=== PATIENT | female | born 1995 | race Caucasian/White ===

== ENCOUNTER 2020-08-13 14:40 | Inpatient (IN) | payer BC ==
[2020-08-13] MEDS ORDERED: Nalbuphine 10 MG/ML Syringe IVPUSH PRN (17:00)
[2020-08-13] MEDS ORDERED: Sodium Chloride 0.9% 10 ML Syringe FLUSH PRN (17:00)
[2020-08-13] MEDS ORDERED: Oxytocin/Lactated Ringers 10 UNIT/1,000 ML BAG IV SCH (17:00)
[2020-08-13] MEDS ORDERED: Ondansetron 4 MG/2 ML SDV IVPUSH PRN (17:00)
--- NOTE | 2020-08-13 17:24 | PCM.LDHP ---
L&D History of Present Illness - General Date of Service: 08/13/20 Admit Problem/Dx: Patient Status Order with Admit Dx/Problem 08/13/20 15:10 Patient Status [ADT] Routine 08/13/20 17:00 Patient Status [ADT] Routine Admission Diagnosis/Problem Admission Diagnosis/Problem Source of Information: Patient History Limitations: Reports: No Limitations - History of Present Illness Introduction:: Patient is a 25 y/o at 40 0/7 wks presents for PROM. Seen in clinic this AM around 100 where membrane sweeping done. Feels that shortly after this had gush of fluid. Has continued since, but been small in amount. No significant contractions. 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: 0 LMP (Approximate): Endocrine/Metabolic History: Reports: Obesity/BMI 30+ - Past Surgical History HEENT Surgical History: Reports: Oral Surgery, Tonsillectomy Female Surgical History: Reports: Breast Biopsy Social & Family History - Tobacco Use Smoking Status *Q: Never Smoker - Alcohol Use Alcohol Use History: No - Recreational Drug Use Recreational Drug Use: No H&P Review of Systems - Review of Systems: Review Of Systems: See Below General: Reports: No Symptoms Pulmonary: Reports: No Symptoms Cardiovascular: Reports: No Symptoms Gastrointestinal: Reports: No Symptoms Genitourinary: Reports: No Symptoms Musculoskeletal: Reports: No Symptoms Psychiatric: Reports: No Symptoms Neurological: Reports: No Symptoms L&D Exam - Exam Exam: See Below - Vital Signs Vital Signs: Last Vital Signs Temp 37.0 C 08/13/20 15:05 Pulse 73 08/13/20 15:05 Resp 16 08/13/20 15:05 BP 136/68 08/13/20 15:05 Pulse Ox 97 08/13/20 15:05 Weight: 129.183 kg - OB Specific Contraction Intensity: Irritability Movement: Active Heart Tones: Present Heart Tones per Min: 130 Heart Rate (FHR) Variability: Moderate (6-25 bmp) Presentation: Vertex - Whitney Score Whitney Score Cervix Position: Posterior Whitney Score Consistency: Soft Whitney Score Effacement: 31-50% Whitney Score Dilation: 1-2 cm Whitney Score Infant's Station: -3 Whitney Score Total: 4 - Exam General: Alert, Oriented, Cooperative Lungs: Clear to Auscultation, Normal Respiratory Effort Cardiovascular: Regular Rate, Regular Rhythm GI/Abdominal Exam: Soft, Non-Tender Genitourinary: Normal external exam Extremities: Normal Inspection Skin: Warm, Dry, Intact - Patient Data Lab Results Last 24 hrs: Laboratory Results - last 24 hr 08/13/20 08/13/20 Range/Units 15:00 16:22 Membrane Rupture Positive H SARS CoV-2 RNA Rapid CHAITANYA Negative (NEGATIVE) Result Diagrams: 08/13/20 17:20 - Problem List (1) 40 weeks gestation of SNOMED Code(s): 03696185 ICD Code: Z3A.40 - 40 WEEKS GESTATION OF Status: Acute Current Visit: Yes (2) PROM (premature rupture of membranes) SNOMED Code(s): 68232416 ICD Code: O42.90 - MEHUL ROM, 7TH0 BETW RUPT & ONST LABR, UNSP WEEKS OF GEST Status: Acute Current Visit: Yes Qualifiers: PROM onset of labor timing: unspecified duration between rupture of membranes and onset of labor PROM gestational age: full term Qualified Code(s): O42.92 - Full-term premature rupture of membranes, unspecified as to length of time between rupture and onset of labor Problem List Initiated/Reviewed/Updated: Yes Orders Last 24hrs: Active Orders 24 hr Category Date Time Status Patient Status [ADT] Routine ADT 08/13/20 17:00 Active Activity as Tolerated [RC] PFP Care 08/13/20 17:00 Active Communication Order [RC] ASDIRECTED Care 08/13/20 17:00 Active Heart Tones [RC] ASDIRECTED Care 08/13/20 17:00 Active Non Stress Test [RC] PER UNIT ROUTINE Care 08/13/20 15:10 Active Notify Provider [RC] PFP Care 08/13/20 17:00 Active Notify Provider [RC] PRN Care 08/13/20 17:00 Active Peripheral IV Care [RC] . DIRECTED Care 08/13/20 17:00 Active Pump Management, Intrathecal [RC] ASDIRECTED Care 08/13/20 17:01 Active Urinary Catheter Assessment [RC] ASDIRECTED Care 08/13/20 17:00 Active Vital Signs [RC] PER UNIT ROUTINE Care 08/13/20 15:10 Active Regular Diet [DIET] Diet 08/13/20 Dinner Active CBC WITH AUTO DIFF [HEME] Stat Lab 08/13/20 17:00 Ordered RAPID PLASMA REAGIN,RPR [CHEM] Routine Lab 08/13/20 17:00 Ordered TYPE AND SCREEN [BBK] Stat Lab 08/13/20 17:00 Ordered Lactated Ringers [Ringers, Lactated] 1,000 ml Med 08/13/20 17:00 Active IV ASDIRECTED Nalbuphine [Nubain] Med 08/13/20 17:00 Ordered 10 mg IVPUSH Q2H PRN Ondansetron [Zofran] Med 08/13/20 17:00 Ordered 4 mg IVPUSH Q4H PRN Oxytocin/Lactated Ringers [Pitocin in LR 10 Units/1,000 Med 08/13/20 17:00 Ordered ML] 10 unit in 1,000 ml IV .CONTINUOUS Oxytocin/Lactated Ringers [Pitocin in LR 10 Units/1,000 Med 08/13/20 17:00 Ordered ML] 10 unit in 1,000 ml IV TITRATE Sodium Chloride 0.9% [Saline Flush] Med 08/13/20 17:00 Ordered 10 ml FLUSH ASDIRECTED PRN Electronic Heart Tones Ext w TOCO [WOMSER] Oth 08/13/20 17:00 Ordered Routine Electronic Heart Tones Internal [WOMSER] Per Unit Oth 08/13/20 17:00 Ordered Routine Peripheral IV Insertion Adult [OM.PC] Routine Oth 08/13/20 17:00 Ordered Resuscitation Status Routine Resus Stat 08/13/20 15:10 Ordered Medication Orders Lactated Ringer's (Ringers, Lactated) 1,000 mls @ 100 mls/hr IV ASDIRECTED XOCHILT Oxytocin/Lactated Ringer's (Pitocin In Lr 10 Units/1,000 Ml) 10 unit in 1,000 mls @ 12 mls/hr IV TITRATE XOCHILT; Protocol Oxytocin/Lactated Ringer's (Pitocin In Lr 10 Units/1,000 Ml) 10 unit in 1,000 mls @ 500 mls/hr IV .CONTINUOUS XOCHILT Nalbuphine HCl (Nubain) 10 mg IVPUSH Q2H PRN PRN Reason: Pain Ondansetron HCl (Zofran) 4 mg IVPUSH Q4H PRN PRN Reason: Nausea/Vomiting Sodium Chloride (Saline Flush) 10 ml FLUSH ASDIRECTED PRN PRN Reason: Keep Vein Open Assessment/Plan Comment:: * Labs done and normal * GBS negative (done in triage 2 days ago) * Reviewed has already been ruptured greater than 6 hours. Would recommend pitocin for augmentation. She will consider * Pain management per patient preference * Anticipate
[2020-08-13] MEDS: Oxytocin/Lactated Ringers 10 UNIT/1,000 ML BAG IV SCH (18:19)
[2020-08-13] MEDS: Lactated Ringers 1,000 ML IV SCH (18:19)
[2020-08-14] MEDS ORDERED: diphenhydrAMINE 50 MG/ML SDV IVPUSH PRN ×2 (02:25→11:40)
[2020-08-14] MEDS ORDERED: fentaNYL 100 MCG/2 ML SDV EPIDUR PRN (02:25)
[2020-08-14] MEDS ORDERED: Bupivacaine/fentaNYL/NS 100 ML Bag EPIDUR PRN (02:25)
[2020-08-14] MEDS ORDERED: fentaNYL 100 MCG/2 ML SDV ONE ×2 (02:30→11:36)
[2020-08-14] MEDS: Lactated Ringers 1,000 ML IV SCH ×3 (02:50→08:37)
--- NOTE | 2020-08-14 02:57 | PCM.PREANE ---
Preanesthetic Assessment - Procedure Proposed Procedure: cedric - Anesthesia/Transfusion/Family Hx Anesthesia History: Prior Anesthesia Without Reaction Family History of Anesthesia Reaction: No Transfusion History: No Prior Transfusion(s) - Review of Systems General: No Symptoms Pulmonary: No Symptoms Cardiovascular: No Symptoms Gastrointestinal: No Symptoms Neurological: No Symptoms Other: Reports: None - Physical Assessment Vital Signs: Last Vital Signs Temp 98.6 F 08/13/20 15:05 Pulse 73 08/13/20 15:05 Resp 16 08/13/20 15:05 BP 136/68 08/13/20 15:05 Pulse Ox 97 08/13/20 15:05 Height: 5 ft 8 in Weight: 129.183 kg ASA Class: 3 Mental Status: Alert & Oriented x3 Airway Class: Mallampati = 1 Dentition: Reports: Normal Dentition Thyro-Mental Finger Breadths: 3 Mouth Opening Finger Breadths: 3 ROM/Head Extension: Full Lungs: Clear to Auscultation, Normal Respiratory Effort Cardiovascular: Regular Rate, Regular Rhythm - Lab Values: Laboratory Last Values WBC 10.90 K/mm3 (3.98-10.04) H 08/13/20 17:20 RBC 4.34 M/mm3 (3.98-5.22) 08/13/20 17:20 Hgb 12.8 gm/dl (11.2-15.7) 08/13/20 17:20 Hct 38.3 % (34.1-44.9) 08/13/20 17:20 MCV 88.2 fl (79.4-94.8) 08/13/20 17:20 MCH 29.5 pg (25.6-32.2) 08/13/20 17:20 MCHC 33.4 g/dl (32.2-35.5) 08/13/20 17:20 RDW Std Deviation 43.8 fL (36.4-46.3) 08/13/20 17:20 Plt Count 230 K/mm3 (182-369) 08/13/20 17:20 MPV 10.6 fl (9.4-12.3) 08/13/20 17:20 Neut % (Auto) 74.0 % (34.0-71.1) H 08/13/20 17:20 Lymph % (Auto) 17.9 % (19.3-51.7) L 08/13/20 17:20 [place] % (Auto) 7.1 % (4.7-12.5) 08/13/20 17:20 Eos % (Auto) 0.7 (0.7-5.8) 08/13/20 17:20 Baso % (Auto) 0.1 % (0.1-1.2) 08/13/20 17:20 Neut # (Auto) 8.07 K/mm3 (1.56-6.13) H 08/13/20 17:20 Lymph # (Auto) 1.95 K/mm3 (1.18-3.74) 08/13/20 17:20 [place] # (Auto) 0.77 K/mm3 (0.24-0.36) H 08/13/20 17:20 Eos # (Auto) 0.08 K/mm3 (0.04-0.36) 08/13/20 17:20 Baso # (Auto) 0.01 K/mm3 (0.01-0.08) 08/13/20 17:20 Manual Slide Review Not Reportable 08/13/20 17:20 Membrane Rupture Positive H 08/13/20 16:22 RPR Non-reactive (NONREACTIVE) 08/13/20 17:20 SARS CoV-2 RNA Rapid CHAITANYA Negative (NEGATIVE) 08/13/20 15:00 Blood Type O POSITIVE 08/13/20 17:20 Gel Antibody Screen Negative 08/13/20 17:20 - Allergies Allergies/Adverse Reactions: Allergies Allergy/AdvReac Type Severity Reaction Status Date / Time Cephalosporins Allergy Rash Verified 08/11/20 11:20 - Blood Blood Available: No - Acknowledgements Anesthesia Type Planned: Epidural Pt an Appropriate Candidate for the Planned Anesthesia: Yes Alternatives and Risks of Anesthesia Discussed w Pt/Guardian: Yes Pt/Guardian Understands and Agrees with Anesthesia Plan: Yes PreAnesthesia Questionnaire Cardiovascular History: Reports: None Respiratory History: Reports: None Gastrointestinal History: Reports: GERD 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) Para: 0 Other OB/BYN History: left breast cyst removal Endocrine/Metabolic History: Reports: Obesity/BMI 30+ - Past Surgical History HEENT Surgical History: Reports: Oral Surgery, Tonsillectomy Female Surgical History: Reports: Breast Biopsy - SUBSTANCE USE Smoking Status *Q: Former Smoker (quit 7 years ago) Tobacco Use Within Last Twelve Months: No Second Hand Smoke Exposure: No Days Per Week of Alcohol Use: 0 Recreational Drug Use History: No - HOME MEDS Home Medications: Home Meds Pnv No.95/Ferrous Fum/Folic AC [ Tablet] 1 each PO DAILY 08/11/20 [History] Calcium Carbonate [Tums] 500 mg PO DAILY PRN 08/13/20 [History] Ferrous Sulfate [Iron] 325 mg PO DAILY 08/13/20 [History] - CURRENT (IN HOUSE) MEDS Current Meds: Current Medications Diphenhydramine HCl (Benadryl) 25 mg IVPUSH Q6H PRN PRN Reason: pruritis Ephedrine Sulfate (Ephedrine Sulfate) 5 mg IVPUSH ASDIRECTED PRN PRN Reason: Hypotension Fentanyl (Sublimaze) 100 mcg EPIDUR Q3H PRN PRN Reason: Pain Last Admin: 08/14/20 02:35 Dose: 100 mcg Documented by: Fentanyl/Bupivacaine HCl (Fentanyl/Bupivacaine/Ns 2 Mcg-0.125% 100 Ml) 100 ml EPIDUR ASDIRECTED PRN PRN Reason: Pain Last Admin: 08/14/20 02:35 Dose: 100 ml Documented by: Lactated Ringer's (Ringers, Lactated) 1,000 mls @ 100 mls/hr IV ASDIRECTED XOCHILT Last Admin: 08/14/20 02:50 Dose: 100 mls/hr Documented by: Oxytocin/Lactated Ringer's (Pitocin In Lr 10 Units/1,000 Ml) 10 unit in 1,000 mls @ 12 mls/hr IV TITRATE XOCHILT; Protocol Last Titration: 08/13/20 21:45 Dose: 12 munits/min, 72 mls/hr Documented by: Oxytocin/Lactated Ringer's (Pitocin In Lr 10 Units/1,000 Ml) 10 unit in 1,000 mls @ 500 mls/hr IV .CONTINUOUS XOCHILT Nalbuphine HCl (Nubain) 10 mg IVPUSH Q2H PRN PRN Reason: Pain Ondansetron HCl (Zofran) 4 mg IVPUSH Q4H PRN PRN Reason: Nausea/Vomiting Sodium Chloride (Saline Flush) 10 ml FLUSH ASDIRECTED PRN PRN Reason: Keep Vein Open Discontinued Medications Fentanyl (Sublimaze) Confirm Administered Dose 100 mcg .ROUTE .[facility]-MED ONE Stop: 08/14/20 02:31
[2020-08-14] MEDS: ePHEDrine 50 MG/ML SDV IVPUSH PRN ×2 (03:28→03:32)
[2020-08-14] MEDS: Oxytocin/Lactated Ringers 10 UNIT/1,000 ML BAG IV SCH (08:35)
--- NOTE | 2020-08-14 10:08 | PCM.PNLD ---
Labor Progress Note - VS & Meds Vital Signs: Last Vital Signs Temp 37.0 C 08/13/20 15:05 Pulse 73 08/13/20 15:05 Resp 16 08/13/20 15:05 BP 136/68 08/13/20 15:05 Pulse Ox 97 08/13/20 15:05 Active Medications: Current Medications Diphenhydramine HCl (Benadryl) 25 mg IVPUSH Q6H PRN PRN Reason: pruritis Ephedrine Sulfate (Ephedrine Sulfate) 5 mg IVPUSH ASDIRECTED PRN PRN Reason: Hypotension Last Admin: 08/14/20 03:32 Dose: 5 mg Documented by: Fentanyl (Sublimaze) 100 mcg EPIDUR Q3H PRN PRN Reason: Pain Last Admin: 08/14/20 02:35 Dose: 100 mcg Documented by: Fentanyl/Bupivacaine HCl (Fentanyl/Bupivacaine/Ns 2 Mcg-0.125% 100 Ml) 100 ml EPIDUR ASDIRECTED PRN PRN Reason: Pain Last Admin: 08/14/20 02:35 Dose: 100 ml Documented by: Lactated Ringer's (Ringers, Lactated) 1,000 mls @ 100 mls/hr IV ASDIRECTED XOCHILT Last Admin: 08/14/20 08:37 Dose: 100 mls/hr Documented by: Oxytocin/Lactated Ringer's (Pitocin In Lr 10 Units/1,000 Ml) 10 unit in 1,000 mls @ 12 mls/hr IV TITRATE XOCHILT; Protocol Last Titration: 08/14/20 09:45 Dose: 20 munits/min, 120 mls/hr Documented by: Oxytocin/Lactated Ringer's (Pitocin In Lr 10 Units/1,000 Ml) 10 unit in 1,000 mls @ 500 mls/hr IV .CONTINUOUS XOCHILT Nalbuphine HCl (Nubain) 10 mg IVPUSH Q2H PRN PRN Reason: Pain Ondansetron HCl (Zofran) 4 mg IVPUSH Q4H PRN PRN Reason: Nausea/Vomiting Sodium Chloride (Saline Flush) 10 ml FLUSH ASDIRECTED PRN PRN Reason: Keep Vein Open Discontinued Medications Fentanyl (Sublimaze) Confirm Administered Dose 100 mcg .ROUTE .[facility] ONE Stop: 08/14/20 02:31 Last Admin: 08/14/20 06:35 Dose: Not Given Documented by: - Uterine Contractions Uterine Monitoring Mode: External Vadito Contraction Intensity: Moderate - Monitoring Monitor Mode: External Ultrasound Heart Rate (FHR) Baseline: 135 Heart Rate (FHR) Variability: Moderate (6-25 bmp) Accelerations: Absent Decelerations: Early Strip Review: Category I - Vaginal Exam Dilation (cm): 5 Effacement (Percent): 80 Station: -1 Cervical Position: Midposition - Labor Progress (Free Text) Labor Progress: Patient got an epidural overnight. Has been able to rest since that time. Pitocin currently at 14. Had a high temperature of 99.9 at 0730, but no fevers. 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 IUPC placed to allow more accurate pitocin titration. Patient and family agree. Will continue to monitor closely for labor progress and signs of infection.
[2020-08-14] MEDS ORDERED: Oxytocin/Lactated Ringers 20 UNIT/1,000 ML BAG IV SCH (10:15)
[2020-08-14] MEDS ORDERED: Sodium Chloride 0.9% 100 ML ONE (11:11)
[2020-08-14] MEDS ORDERED: Ampicillin 2 GM AdvVial IV ONE (11:11)
[2020-08-14] MEDS ORDERED: Metoclopramide 10 MG/2 ML SDV IVPUSH ONE (11:17)
[2020-08-14] MEDS: Ampicillin 2 GM in Sodium Chloride 0.9% 100 ML IV SCH ×3 (11:17→23:44)
[2020-08-14] MEDS ORDERED: Citric Acid/Sodium Citrate Solution 30 ML Cup PO ONE (11:17)
[2020-08-14] MEDS ORDERED: Clindamycin Phosphate 900 MG in Sodium Chloride 0.9% 100 ML IV ONE (11:17)
[2020-08-14] MEDS ORDERED: Metoclopramide 10 MG/2 ML SDV ONE (11:17)
--- NOTE | 2020-08-14 11:23 | PCM.SN.2 ---
- Free Text/Narrative Note: Checked patient and mostly a 5 cm, almost 6 cm. Minimal change from last exam. Pitocin at 24. Now also with a fever to 100.9. Reviewed will start antibiotics, but that fever does make sometime labor more dysfunctional and patient's labor pattern already abnormal. Discussed can certainly keep working towards a vaginal delivery. Discussed that pitocin limit is 30. Reviewed questions / concerns. Patient and family do agree to moving forward with c- section. OR crew notified. Amp, Gent, Clinda to be started. Will continue for 24 hours post op Kathy Flores MD
[2020-08-14] MEDS ORDERED: Clindamycin Phosphate in D5W 900 MG in Premix Bag 1 BAG IV ONE ×2 (11:30)
--- NOTE | 2020-08-14 11:32 | PCM.OPNOTE ---
- General Post-Op/Procedure Note Date of Surgery/Procedure: 08/14/20 Operative Procedure(s): Primary low transverse cesction Findings: Baby boy in a vertex presentation. APGARS of 8 & 9. Weight of 9 lbs 1 oz. Normal appearance of the uterus, fallopian tubes, and ovaries Pre Op Diagnosis: 40 1/7 wks gestation. FTP in 1st stage. 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 Speed and safety of procedure Pathology: Cord blood collected. Placenta discarded Fluid Replacement, Intraop: 900 Output, Urine Amount: 125 EBL in mLs: 900 Complications: None Condition: Good Free Text/Narrative:: The risks, benefits, indications, potential complications, and alternatives were explained to the patient and informed consent obtained. After induction of anesthesia, the patient was placed in a supine position and then draped and prepped in the usual sterile manner. A Pfannenstiel incision was made and carried down through the subcutaneous tissue to the fascia. Fascial incision was made and extended transversely. The fascia was from the underlying rectus tissue superiorly and inferiorly. The peritoneum was identified and entered. Peritoneal incision was extended longitudinally. The utero-vesical peritoneal reflection was incised transversely and the bladder flap was bluntly freed from the lower uterine segment. A low transverse uterine incision was made sharply with a scalpel and extended bluntly in a cephalocaudad direction. A baby boy was delivered from a vertex presentation with APGARS as above. After the umbilical cord was clamped and cut cord blood was obtained for evaluation. The placenta was removed intact and appeared normal. The uterus was exteriorized and cleared of clots. The uterine outline, tubes and ovaries appeared normal. The uterine incision was closed with running locked sutures of 0 Vicryl. Hemostasis was obtained with 2nd imbricating layer of 0 Vicryl. The uterus was then placed back into the abdomen. The infracolic gutters were cleared of blood clots. The fascia was then reapproximated with running sutures of 0 Vicryl. The subcutaneous tissue was irrigated with sterile warm normal saline, hemostasis obtained with cautery. This layer was closed with a running 0 Vicryl too. The skin was reapproximated with running Subcuticular 4-0 monocryl sutures. Instrument, sponge, and needle counts were correct prior the abdominal closure and at the conclusion of the case.
[2020-08-14] MEDS ORDERED: Ketorolac 30 MG/ML SDV ONE (11:36)
[2020-08-14] MEDS ORDERED: Lidocaine 2% with EPINEPHrine 1:200,000 20 ML SDV ONE (11:36)
[2020-08-14] MEDS ORDERED: Ondansetron 4 MG/2 ML SDV ONE (11:36)
[2020-08-14] MEDS ORDERED: Oxytocin 10 Units/1 ML SDV ONE ×2 (11:36→12:06)
[2020-08-14] MEDS ORDERED: Lactated Ringers 2,000 ML ONE (11:36)
[2020-08-14] MEDS ORDERED: Morphine PF 1 MG/ML Amp ONE (11:37)
[2020-08-14] MEDS ORDERED: Ondansetron 4 MG/2 ML SDV IVPUSH PRN (11:40)
[2020-08-14] MEDS ORDERED: ePHEDrine 50 MG/ML SDV IVPUSH PRN ×2 (11:40→14:32)
[2020-08-14] MEDS ORDERED: fentaNYL 100 MCG/2 ML SDV IVPUSH PRN (11:40)
[2020-08-14] MEDS ORDERED: HYDROmorphone 0.5 MG/0.5 ML Syringe IVPUSH PRN (11:41)
[2020-08-14] MEDS ORDERED: Bupivacaine 0.25% 10 ML SDV ONE (12:00)
[2020-08-14] MEDS ORDERED: Misoprostol 200 MCG Tab ONE (12:14)
[2020-08-14] MEDS ORDERED: Meperidine 50 MG/ML Vial ONE (12:23)
--- NOTE | 2020-08-14 12:46 | PCM.POSTAN ---
POST ANESTHESIA ASSESSMENT - MENTAL STATUS Mental Status: Alert - VITAL SIGNS Vital Signs: Last Vital Signs Temp 37 08/13/20 Pulse 73 08/13/20 Resp 16 08/13/20 BP 136/68 08/13/20 Pulse Ox 97% 08/13/20 - RESPIRATORY Respiratory Status: Respiratory Rate WNL, Airway Patent, O2 Saturation Stable, Supplemental Oxygen - CARDIOVASCULAR CV Status: Pulse Rate WNL, Blood Pressure Stable - GASTROINTESTINAL GI Status: No Symptoms - POST OP HYDRATION Hydration Status: Adequate & Stable
[2020-08-14] MEDS ORDERED: Dextrose 5%-Lactated Ringers 1,000 ML IV SCH (14:32)
[2020-08-14] MEDS ORDERED: Acetaminophen/oxyCODONE 325-5 MG Tab PO PRN (14:32)
[2020-08-14] MEDS ORDERED: Ondansetron 4 MG/2 ML SDV IV PRN (14:32)
[2020-08-14] MEDS ORDERED: Naloxone 0.4 MG/ML SDV IVPUSH PRN (14:32)
[2020-08-14] MEDS: Ketorolac 30 MG/ML SDV IVPUSH SCH (18:36)
[2020-08-14] MEDS: Clindamycin Phosphate in D5W 900 MG in Premix Bag 1 BAG IV SCH ×2 (20:39)
[2020-08-15] MEDS: Clindamycin Phosphate in D5W 900 MG in Premix Bag 1 BAG IV SCH ×4 (04:26→12:09)
[2020-08-15] MEDS: Ampicillin 2 GM in Sodium Chloride 0.9% 100 ML IV SCH ×2 (05:26→11:40)
[2020-08-15] MEDS: Ketorolac 30 MG/ML SDV IVPUSH SCH ×2 (06:13→06:20)
--- NOTE | 2020-08-15 06:34 | PCM.PNPP ---
- General Info Date of Service: 08/15/20 Functional Status: Reports: Pain Controlled, Tolerating Diet, Ambulating, Urinating - Review of Systems General: Reports: No Symptoms Pulmonary: Reports: No Symptoms Cardiovascular: Reports: No Symptoms Gastrointestinal: Reports: Abdominal Pain Genitourinary: Reports: No Symptoms Musculoskeletal: Reports: No Symptoms Neurological: Reports: No Symptoms - Patient Data Vital Signs - Most Recent: Last Vital Signs Temp 36.8 C 08/15/20 04:12 Pulse 80 08/15/20 04:12 Resp 18 08/15/20 04:12 BP 139/61 08/15/20 04:12 Pulse Ox 95 08/15/20 06:00 Weight - Most Recent: 129.183 kg I&O - Last 24 Hours: Intake & Output 08/14/20 08/14/20 08/15/20 14:59 22:59 06:59 Intake Total 1560 1450 1800 Output Total 310 1000 2325 Balance 1250 450 -525 Lab Results - Last 24 Hours: Laboratory Results - last 24 hr 08/15/20 Range/Units 06:00 WBC 10.08 H (3.98-10.04) K/mm3 RBC 3.48 L (3.98-5.22) M/mm3 Hgb 10.0 L D (11.2-15.7) gm/dl Hct 31.7 L (34.1-44.9) % MCV 91.1 (79.4-94.8) fl MCH 28.7 (25.6-32.2) pg MCHC 31.5 L (32.2-35.5) g/dl RDW Std Deviation 45.1 (36.4-46.3) fL Plt Count 194 (182-369) K/mm3 MPV 10.5 (9.4-12.3) fl Med Orders - Current: Current Medications Docusate Sodium (Colace) 100 mg PO Q12H PRN PRN Reason: Constipation Ephedrine Sulfate (Ephedrine Sulfate) 5 mg IVPUSH SEECOMMENT PRN PRN Reason: Other Ampicillin Sodium 2 gm/ Sodium (Chloride) 100 mls @ 200 mls/hr IV Q6H [facility] Last Admin: 08/15/20 05:26 Dose: 200 mls/hr Documented by: Clindamycin Phosphate 900 mg/ (Premix) 50 mls @ 100 mls/hr IV Q8H [facility] Last Admin: 08/15/20 04:26 Dose: 100 mls/hr Documented by: Ibuprofen (Motrin) 600 mg PO Q6H PRN PRN Reason: mild pain or fever Naloxone HCl (Narcan) 0.1 mg IVPUSH SEECOMMENT PRN PRN Reason: Respiratory Depression Ondansetron HCl (Zofran) 4 mg IV Q8H PRN PRN Reason: Nausea/Vomiting Oxycodone/Acetaminophen (Percocet 325-5 Mg) 1 tab PO Q4H PRN PRN Reason: Pain (moderate 4-6) Oxycodone/Acetaminophen (Percocet 325-5 Mg) 2 tab PO Q4H PRN PRN Reason: Pain (severe 7-10) Discontinued Medications Ampicillin Sodium (Ampicillin) Confirm Administered Dose 2 gm IV .STK-MED ONE Stop: 08/14/20 11:12 Last Admin: 08/14/20 15:01 Dose: Not Given Documented by: Citric Acid/Sodium Citrate (Bicitra Solution) 30 ml PO ONETIME ONE Stop: 08/14/20 11:18 Last Admin: 08/14/20 11:28 Dose: 30 ml Documented by: Diphenhydramine HCl (Benadryl) 25 mg IVPUSH Q6H PRN PRN Reason: pruritis Diphenhydramine HCl (Benadryl) 25 mg IVPUSH Q6H PRN PRN Reason: pruritis Stop: 08/14/20 16:00 Ephedrine Sulfate (Ephedrine Sulfate) 5 mg IVPUSH ASDIRECTED PRN PRN Reason: Hypotension Last Admin: 08/14/20 03:32 Dose: 5 mg Documented by: Ephedrine Sulfate (Ephedrine Sulfate) 5 mg IVPUSH ASDIRECTED PRN PRN Reason: Hypotension Stop: 08/14/20 16:00 Fentanyl (Sublimaze) 100 mcg EPIDUR Q3H PRN PRN Reason: Pain Last Admin: 08/14/20 02:35 Dose: 100 mcg Documented by: Fentanyl (Sublimaze) Confirm Administered Dose 100 mcg .ROUTE .STK-MED ONE Stop: 08/14/20 02:31 Last Admin: 08/14/20 06:35 Dose: Not Given Documented by: Fentanyl (Sublimaze) Confirm Administered Dose 100 mcg .ROUTE .STK-MED ONE Stop: 08/14/20 11:37 Fentanyl (Sublimaze) 50 mcg IVPUSH Q5M PRN PRN Reason: Pain Stop: 08/14/20 16:00 Fentanyl/Bupivacaine HCl (Fentanyl/Bupivacaine/Ns 2 Mcg-0.125% 100 Ml) 100 ml EPIDUR ASDIRECTED PRN PRN Reason: Pain Last Admin: 08/14/20 02:35 Dose: 100 ml Documented by: Hydromorphone HCl (Dilaudid) 0.5 mg IVPUSH ONETIME PRN PRN Reason: Pain Stop: 08/14/20 16:00 Lactated Ringer's (Ringers, Lactated) 1,000 mls @ 100 mls/hr IV ASDIRECTED [facility] Last Admin: 08/14/20 08:37 Dose: 100 mls/hr Documented by: Oxytocin/Lactated Ringer's (Pitocin In Lr 10 Units/1,000 Ml) 10 unit in 1,000 mls @ 12 mls/hr IV TITRATE [facility]; Protocol Last Titration: 08/14/20 09:45 Dose: 20 munits/min, 120 mls/hr Documented by: Oxytocin/Lactated Ringer's (Pitocin In Lr 10 Units/1,000 Ml) 10 unit in 1,000 mls @ 500 mls/hr IV .CONTINUOUS [facility]T Oxytocin/Lactated Ringer's (Pitocin In Lr 20 Units/1,000 Ml) 20 unit in 1,000 mls @ 66 mls/hr IV TITRATE [facility]; Protocol Last Admin: 08/14/20 10:30 Dose: 66 mls/hr Documented by: Gentamicin Sulfate 640 mg/ (Sodium Chloride) 116 mls @ 116 mls/hr IV ONETIME ONE Stop: 08/14/20 12:59 Last Admin: 08/14/20 11:34 Dose: 116 mls/hr Documented by: Sodium Chloride (Normal Saline) Confirm Administered Dose 100 mls @ as directed .ROUTE .STK-MED ONE Stop: 08/14/20 11:12 Last Admin: 08/14/20 15:01 Dose: Not Given Documented by: Clindamycin Phosphate 900 mg/ (Sodium Chloride) 106 mls @ 200 mls/hr IV ONETIME ONE Stop: 08/14/20 11:48 Last Admin: 08/14/20 15:01 Dose: Not Given Documented by: Clindamycin Phosphate 900 mg/ (Premix) 50 mls @ 100 mls/hr IV ONETIME ONE Stop: 08/14/20 11:59 Last Admin: 08/14/20 15:02 Dose: Not Given Documented by: Lactated Ringer's (Ringers, Lactated) Confirm Administered Dose 2,000 mls @ as directed .ROUTE .STK-MED ONE Stop: 08/14/20 11:37 Dextrose/Lactated Ringer's (Dextrose 5%-Lactated Ringers) 1,000 mls @ 125 mls/hr IV ASDIRECTED [facility] Stop: 08/14/20 22:31 Last Admin: 08/14/20 14:47 Dose: 125 mls/hr Documented by: Ketorolac Tromethamine (Toradol) Confirm Administered Dose 30 mg .ROUTE .STK-MED ONE Stop: 08/14/20 11:37 Ketorolac Tromethamine (Toradol) 30 mg IVPUSH Q6H [facility] Stop: 08/15/20 06:31 Last Admin: 08/15/20 06:13 Dose: 30 mg Documented by: Lidocaine/Epinephrine (Xylocaine-Mpf 2%-Epi 1:200,000) Confirm Administered Dose 20 ml .ROUTE .STK-MED ONE Stop: 08/14/20 11:37 Meperidine HCl (Meperidine) Confirm Administered Dose 50 mg .ROUTE .STK-MED ONE Stop: 08/14/20 12:24 Metoclopramide HCl (Reglan) Confirm Administered Dose 10 mg .ROUTE .STK-MED ONE Stop: 08/14/20 11:18 Last Admin: 08/14/20 15:01 Dose: Not Given Documented by: Metoclopramide HCl (Reglan) 10 mg IVPUSH ONETIME ONE Stop: 08/14/20 11:18 Last Admin: 08/14/20 11:28 Dose: 10 mg Documented by: Miscellaneous Medication (Phenylephrine 1 Mg/10 Ml-Ns) Confirm Administered Dose 1 mg IV .STK-MED ONE Stop: 08/14/20 11:37 Miscellaneous Medication (Phenylephrine 1 Mg/10 Ml-Ns) 0.1 mg IV ONETIME PRN PRN Reason: blood pressure control Misoprostol (Cytotec) Confirm Administered Dose 600 mcg .ROUTE .STK-MED ONE Stop: 08/14/20 12:15 Last Admin: 08/14/20 12:15 Dose: 600 mcg Documented by: Morphine Sulfate (Duramorph Pf) Confirm Administered Dose 1 mg .ROUTE .STK-MED ONE Stop: 08/14/20 11:38 Nalbuphine HCl (Nubain) 10 mg IVPUSH Q2H PRN PRN Reason: Pain Ondansetron HCl (Zofran) 4 mg IVPUSH Q4H PRN PRN Reason: Nausea/Vomiting Ondansetron HCl (Zofran) Confirm Administered Dose 4 mg .ROUTE .STK-MED ONE Stop: 08/14/20 11:37 Ondansetron HCl (Zofran) 4 mg IVPUSH ONETIME PRN PRN Reason: Nausea/Vomiting Oxytocin (Pitocin) Confirm Administered Dose 10 unit .ROUTE .STK-MED ONE Stop: 08/14/20 11:37 Oxytocin (Pitocin) Confirm Administered Dose 10 unit .ROUTE .STK-MED ONE Stop: 08/14/20 12:07 Sodium Chloride (Saline Flush) 10 ml FLUSH ASDIRECTED PRN PRN Reason: Keep Vein Open - Infant Interaction Infant Disposition, : in Room with Family Interaction: Holding Feeding: Attempted ; Nursed Fair/Poor Support Person: - Recovery Exam Fundal Tone: Firm Fundal Level: 1 Fingerbreadths Below Umbilicus Fundal Placement: Midline Lochia Amount: Small Lochia Color: Rubra/Red Perineum Description: Intact, Minimal Bruising/Swelling Episiotomy/Laceration: None Bladder Status: Voiding Urinary Elimination: Voided - Exam General: Alert, Oriented, Cooperative Lungs: Clear to Auscultation, Normal Respiratory Effort Cardiovascular: Regular Rate, Regular Rhythm GI/Abdominal Exam: Soft, Tender (appropriate ) Extremities: Normal Inspection Skin: Warm, Dry, Intact Wound/Incisions: Healing Well, No Drainage - Problem List & Annotations (1) 40 weeks gestation of SNOMED Code(s): 12461930 Code(s): Z3A.40 - 40 WEEKS GESTATION OF Status: Acute Current Visit: Yes (2) PROM (premature rupture of membranes) SNOMED Code(s): 51146070 Code(s): O42.90 - MEHUL ROM, 7TH0 BETW RUPT & ONST LABR, UNSP WEEKS OF GEST Status: Acute Current Visit: Yes Qualifiers: PROM onset of labor timing: unspecified duration between rupture of membranes and onset of labor PROM gestational age: full term Qualified Code(s): O42.92 - Full-term premature rupture of membranes, unspecified as to length of time between rupture and onset of labor (3) Chorioamnionitis SNOMED Code(s): 37580179 Code(s): O41.1290 - CHORIOAMNIONITIS, UNSP TRIMESTER, NOT APPLICABLE OR UNSP Status: Acute Current Visit: Yes (4) Failure to progress in first stage of labor SNOMED Code(s): 059182845 Code(s): NTF9955 - Status: Acute Current Visit: Yes (5) S/P primary low transverse SNOMED Code(s): 551289966, 38193230, 361111977, 297511531, 791320156 Code(s): Z98.891 - HISTORY OF UTERINE SCAR FROM PREVIOUS SURGERY Status: Acute Current Visit: Yes - Problem List Review Problem List Initiated/Reviewed/Updated: Yes - My Orders Last 24 Hours: My Active Orders 08/14/20 Lunch Regular Diet [DIET] 08/14/20 11:30 Ampicillin 2 gm Sodium Chloride 0.9% [Normal Saline] 100 ml IV Q6H 08/14/20 14:32 Acetaminophen/oxyCODONE [Percocet 325-5 MG] 1 tab PO Q4H PRN Acetaminophen/oxyCODONE [Percocet 325-5 MG] 2 tab PO Q4H PRN Docusate Sodium [Colace] 100 mg PO Q12H PRN Naloxone [Narcan] 0.1 mg IVPUSH SEECOMMENT PRN Ondansetron [Zofran] 4 mg IV Q8H PRN ePHEDrine [ePHEDrine sulfate] 5 mg IVPUSH SEECOMMENT PRN 08/14/20 14:32 Activity as Tolerated [RC] .Routine Antiembolic Devices [RC] PER UNIT ROUTINE Communication Order [RC] PER UNIT ROUTINE Intake and Output [RC] Q4HR Notify Provider Intake and Out [RC] ASDIRECTED RT Incentive Spirometry [RC] Q2HWA Vital Signs [RC] Q4HR Assess Lochia [WOMSER] Per Unit Routine Assess Uterine Involution [WOMSER] Per Unit Routine Breast Pump [WOMSER] Per Unit Routine Peripheral IV Discontinue [OM.PC] Routine Sequential Compression Device [OM.PC] Per Unit Routine 08/14/20 20:00 Clindamycin Phosphate in D5W [Cleocin in D5W] 900 mg Premix Bag 1 bag IV Q8H 08/15/20 12:30 Ibuprofen [Motrin] 600 mg PO Q6H PRN 08/15/20 12:44 Urinary Catheter Removal [RC] Per Unit Routine - Assessment Assessment:: POD#1 - Plan Plan:: * Routine cares * Breast feeding * Discontinue Clindamycin and Ampicillin today at 24 hours post op * Discharge home in 1-2 days
[2020-08-15] MEDS: Docusate Sodium 100 MG Cap PO PRN ×2 (09:58→21:00)
[2020-08-15] MEDS: Acetaminophen/oxyCODONE 325-5 MG Tab PO PRN ×2 (13:51→18:20)
[2020-08-15] MEDS: Ibuprofen 600 MG Tab PO PRN (21:00)
[2020-08-16] MEDS: Acetaminophen/oxyCODONE 325-5 MG Tab PO PRN ×2 (01:18→09:10)
[2020-08-16] MEDS: Ibuprofen 600 MG Tab PO PRN (04:40)
--- NOTE | 2020-08-16 07:15 | PCM.DCSUM1 ---
Discharge Summary - Discharge Data Discharge Date: 08/16/20 Discharge Disposition: Home, Self-Care 01 Condition: Good - Referral to Home Health Primary Care Physician: ESTEFANI Campbell - Discharge Diagnosis/Problem(s) (1) 40 weeks gestation of SNOMED Code(s): 98338793 ICD Code: Z3A.40 - 40 WEEKS GESTATION OF Status: Acute Current Visit: Yes (2) PROM (premature rupture of membranes) SNOMED Code(s): 03528647 ICD Code: O42.90 - MEHUL ROM, 7TH0 BETW RUPT & ONST LABR, UNSP WEEKS OF GEST Status: Acute Current Visit: Yes Qualifiers: PROM onset of labor timing: unspecified duration between rupture of membranes and onset of labor PROM gestational age: full term Qualified Code(s): O42.92 - Full-term premature rupture of membranes, unspecified as to length of time between rupture and onset of labor (3) Chorioamnionitis SNOMED Code(s): 37131882 ICD Code: O41.1290 - CHORIOAMNIONITIS, UNSP TRIMESTER, NOT APPLICABLE OR UNSP Status: Acute Current Visit: Yes Qualifiers: Fetus number: single or unspecified fetus Trimester: third trimester Qualified Code(s): O41.1230 - Chorioamnionitis, third trimester, not applicable or unspecified (4) Failure to progress in first stage of labor SNOMED Code(s): 960833858 ICD Code: [id number] - Status: Acute Current Visit: Yes (5) S/P primary low transverse SNOMED Code(s): 717932513, 91499636, 558077092, 900900857, 548817780 ICD Code: Z98.891 - HISTORY OF UTERINE SCAR FROM PREVIOUS SURGERY Status: Acute Current Visit: Yes - Patient Summary/Data Operative Procedure(s) Performed: Primary low transverse cesction Complications: None Consults: None Recommended Follow-up Testing/Procedures: Follow up in 3 weeks Hospital Course: 25 y/o at 40 0/7 wks presented with PROM. Was started on pitocin for augmentation, but did not progress past 5 cm and did eventually develop a fever after ruptured greater than 24hours c/w chorioamnionitis. Patient counseled on options and did proceed with PLTCS. See operative note for full details. was maintained on antibiotics for 24 hours and did well. Was discharged home on PPD#2 - Patient Instructions Diet: Regular Diet as Tolerated Activity: No Lifting Over 10 Pounds Activity, Other: Pelvic rest for 6 weeks Driving: Do Not Drive (While taking narcotics ) Showering/Bathing: May Shower, No Tub Bathing/Swimming Wound/Incision Care: Keep Operative Site/Wound Site Clean and Dry Notify Provider of: Fever, Increased Pain, Swelling and Redness, Drainage, Nause a and/or Vomiting - Discharge Plan *PRESCRIPTION DRUG MONITORING PROGRAM REVIEWED*: No *COPY OF PRESCRIPTION DRUG MONITORING REPORT IN PATIENT ANDRIY: No Prescriptions/Med Rec: Acetaminophen/oxyCODONE [Percocet 325-5 MG] 1 - 2 tab PO Q4H PRN #25 tablet PRN Reason: Pain (Severe 7-10) Home Medications: Home Meds Pnv No.95/Ferrous Fum/Folic AC [ Tablet] 1 each PO DAILY 08/11/20 [History] Acetaminophen/oxyCODONE [Percocet 325-5 MG] 1 - 2 tab PO Q4H PRN #25 tablet 08/15/20 [Rx] Docusate Sodium [Colace] 100 mg PO Q12H PRN cap 08/15/20 [Rx] Ibuprofen [Motrin] 600 mg PO Q6H PRN tablet 08/15/20 [Rx] Patient Handouts: and Inducing , Care After Delivery, With Inverted, Flat, or Very Large Nipples Referrals: Kathy Flores MD [Physician] - (3 weeks for check ) - Discharge Summary/Plan Comment DC Time >30 min.: No - Patient Data Vitals - Most Recent: Last Vital Signs Temp 36.7 C 08/16/20 04:39 Pulse 72 08/16/20 04:39 Resp 14 08/16/20 04:39 BP 138/86 08/16/20 04:39 Pulse Ox 95 08/16/20 04:39 Weight - Most Recent: 129.183 kg Med Orders - Current: Current Medications Docusate Sodium (Colace) 100 mg PO Q12H PRN PRN Reason: Constipation Last Admin: 08/15/20 21:00 Dose: 100 mg Documented by: Ephedrine Sulfate (Ephedrine Sulfate) 5 mg IVPUSH SEECOMMENT PRN PRN Reason: Other Ibuprofen (Motrin) 600 mg PO Q6H PRN PRN Reason: mild pain or fever Last Admin: 08/16/20 04:40 Dose: 600 mg Documented by: Naloxone HCl (Narcan) 0.1 mg IVPUSH SEECOMMENT PRN PRN Reason: Respiratory Depression Ondansetron HCl (Zofran) 4 mg IV Q8H PRN PRN Reason: Nausea/Vomiting Oxycodone/Acetaminophen (Percocet 325-5 Mg) 1 tab PO Q4H PRN PRN Reason: Pain (moderate 4-6) Last Admin: 08/16/20 01:18 Dose: 1 tab Documented by: Oxycodone/Acetaminophen (Percocet 325-5 Mg) 2 tab PO Q4H PRN PRN Reason: Pain (severe 7-10) Discontinued Medications Ampicillin Sodium (Ampicillin) Confirm Administered Dose 2 gm IV .[place] ONE Stop: 08/14/20 11:12 Last Admin: 08/14/20 15:01 Dose: Not Given Documented by: Citric Acid/Sodium Citrate (Bicitra Solution) 30 ml PO ONETIME ONE Stop: 08/14/20 11:18 Last Admin: 08/14/20 11:28 Dose: 30 ml Documented by: Diphenhydramine HCl (Benadryl) 25 mg IVPUSH Q6H PRN PRN Reason: pruritis Diphenhydramine HCl (Benadryl) 25 mg IVPUSH Q6H PRN PRN Reason: pruritis Stop: 08/14/20 16:00 Ephedrine Sulfate (Ephedrine Sulfate) 5 mg IVPUSH ASDIRECTED PRN PRN Reason: Hypotension Last Admin: 08/14/20 03:32 Dose: 5 mg Documented by: Ephedrine Sulfate (Ephedrine Sulfate) 5 mg IVPUSH ASDIRECTED PRN PRN Reason: Hypotension Stop: 08/14/20 16:00 Fentanyl (Sublimaze) 100 mcg EPIDUR Q3H PRN PRN Reason: Pain Last Admin: 08/14/20 02:35 Dose: 100 mcg Documented by: Fentanyl (Sublimaze) Confirm Administered Dose 100 mcg .ROUTE .STVizimax-MED ONE Stop: 08/14/20 02:31 Last Admin: 08/14/20 06:35 Dose: Not Given Documented by: Fentanyl (Sublimaze) Confirm Administered Dose 100 mcg .ROUTE .STK-MED ONE Stop: 08/14/20 11:37 Fentanyl (Sublimaze) 50 mcg IVPUSH Q5M PRN PRN Reason: Pain Stop: 08/14/20 16:00 Fentanyl/Bupivacaine HCl (Fentanyl/Bupivacaine/Ns 2 Mcg-0.125% 100 Ml) 100 ml EPIDUR ASDIRECTED PRN PRN Reason: Pain Last Admin: 08/14/20 02:35 Dose: 100 ml Documented by: Hydromorphone HCl (Dilaudid) 0.5 mg IVPUSH ONETIME PRN PRN Reason: Pain Stop: 08/14/20 16:00 Lactated Ringer's (Ringers, Lactated) 1,000 mls @ 100 mls/hr IV ASDIRECTED [facility] Last Admin: 08/14/20 08:37 Dose: 100 mls/hr Documented by: Oxytocin/Lactated Ringer's (Pitocin In Lr 10 Units/1,000 Ml) 10 unit in 1,000 mls @ 12 mls/hr IV TITRATE [facility]; Protocol Last Titration: 08/14/20 09:45 Dose: 20 munits/min, 120 mls/hr Documented by: Oxytocin/Lactated Ringer's (Pitocin In Lr 10 Units/1,000 Ml) 10 unit in 1,000 mls @ 500 mls/hr IV .CONTINUOUS [facility]T Oxytocin/Lactated Ringer's (Pitocin In Lr 20 Units/1,000 Ml) 20 unit in 1,000 mls @ 66 mls/hr IV TITRATE [facility]; Protocol Last Admin: 08/14/20 10:30 Dose: 66 mls/hr Documented by: Ampicillin Sodium 2 gm/ Sodium (Chloride) 100 mls @ 200 mls/hr IV Q6H [facility] Stop: 08/15/20 12:30 Last Admin: 08/15/20 11:40 Dose: 200 mls/hr Documented by: Gentamicin Sulfate 640 mg/ (Sodium Chloride) 116 mls @ 116 mls/hr IV ONETIME ONE Stop: 08/14/20 12:59 Last Admin: 08/14/20 11:34 Dose: 116 mls/hr Documented by: Sodium Chloride (Normal Saline) Confirm Administered Dose 100 mls @ as directed .ROUTE .STK-MED ONE Stop: 08/14/20 11:12 Last Admin: 08/14/20 15:01 Dose: Not Given Documented by: Clindamycin Phosphate 900 mg/ (Sodium Chloride) 106 mls @ 200 mls/hr IV ONETIME ONE Stop: 08/14/20 11:48 Last Admin: 08/14/20 15:01 Dose: Not Given Documented by: Clindamycin Phosphate 900 mg/ (Premix) 50 mls @ 100 mls/hr IV ONETIME ONE Stop: 08/14/20 11:59 Last Admin: 08/14/20 15:02 Dose: Not Given Documented by: Lactated Ringer's (Ringers, Lactated) Confirm Administered Dose 2,000 mls @ as directed .ROUTE .STK-MED ONE Stop: 08/14/20 11:37 Dextrose/Lactated Ringer's (Dextrose 5%-Lactated Ringers) 1,000 mls @ 125 mls/hr IV ASDIRECTED [facility] Stop: 08/14/20 22:31 Last Admin: 08/14/20 14:47 Dose: 125 mls/hr Documented by: Clindamycin Phosphate 900 mg/ (Premix) 50 mls @ 100 mls/hr IV Q8H [facility] Stop: 08/15/20 13:00 Last Admin: 08/15/20 12:09 Dose: 100 mls/hr Documented by: Ketorolac Tromethamine (Toradol) Confirm Administered Dose 30 mg .ROUTE .STK-MED ONE Stop: 08/14/20 11:37 Ketorolac Tromethamine (Toradol) 30 mg IVPUSH Q6H [facility] Stop: 08/15/20 06:31 Last Admin: 08/15/20 06:20 Dose: 30 mg Documented by: Lidocaine/Epinephrine (Xylocaine-Mpf 2%-Epi 1:200,000) Confirm Administered Dose 20 ml .ROUTE .STK-MED ONE Stop: 08/14/20 11:37 Meperidine HCl (Meperidine) Confirm Administered Dose 50 mg .ROUTE .STK-MED ONE Stop: 08/14/20 12:24 Metoclopramide HCl (Reglan) Confirm Administered Dose 10 mg .ROUTE .STK-MED ONE Stop: 08/14/20 11:18 Last Admin: 08/14/20 15:01 Dose: Not Given Documented by: Metoclopramide HCl (Reglan) 10 mg IVPUSH ONETIME ONE Stop: 08/14/20 11:18 Last Admin: 08/14/20 11:28 Dose: 10 mg Documented by: Miscellaneous Medication (Phenylephrine 1 Mg/10 Ml-Ns) Confirm Administered Dose 1 mg IV .STK-MED ONE Stop: 08/14/20 11:37 Miscellaneous Medication (Phenylephrine 1 Mg/10 Ml-Ns) 0.1 mg IV ONETIME PRN PRN Reason: blood pressure control Misoprostol (Cytotec) Confirm Administered Dose 600 mcg .ROUTE .STK-MED ONE Stop: 08/14/20 12:15 Last Admin: 08/14/20 12:15 Dose: 600 mcg Documented by: Morphine Sulfate (Duramorph Pf) Confirm Administered Dose 1 mg .ROUTE .STK-MED ONE Stop: 08/14/20 11:38 Nalbuphine HCl (Nubain) 10 mg IVPUSH Q2H PRN PRN Reason: Pain Ondansetron HCl (Zofran) 4 mg IVPUSH Q4H PRN PRN Reason: Nausea/Vomiting Ondansetron HCl (Zofran) Confirm Administered Dose 4 mg .ROUTE .STK-MED ONE Stop: 08/14/20 11:37 Ondansetron HCl (Zofran) 4 mg IVPUSH ONETIME PRN PRN Reason: Nausea/Vomiting Oxytocin (Pitocin) Confirm Administered Dose 10 unit .ROUTE .STK-MED ONE Stop: 08/14/20 11:37 Oxytocin (Pitocin) Confirm Administered Dose 10 unit .ROUTE .STK-MED ONE Stop: 08/14/20 12:07 Sodium Chloride (Saline Flush) 10 ml FLUSH ASDIRECTED PRN PRN Reason: Keep Vein Open
[2020-08-16] MEDS: Docusate Sodium 100 MG Cap PO PRN (09:11)
--- NOTE | 2020-08-16 19:31 | PCM48HPAN ---
Post Anesthesia Note - EVALUATION WITHIN 48HRS OF ANESTHETIC Vital Signs in Normal Range: Yes Patient Participated in Evaluation: No (Patient has been discharged) Respiratory Function Stable: Yes Airway Patent: Yes Cardiovascular Function Stable: Yes Hydration Status Stable: Yes Pain Control Satisfactory: Yes Nausea and Vomiting Control Satisfactory: Yes Mental Status Recovered: Yes Vital Signs: Last Vital Signs Temp 36.9 C 08/16/20 09:02 Pulse 78 08/16/20 09:02 Resp 16 08/16/20 09:02 BP 138/85 08/16/20 11:03 Pulse Ox 95 08/16/20 09:02 - COMMENTS/OBSERVATIONS Free Text/Narrative:: Routine course of recovery post . No concerns reported by nursing staff development coordinator or physician.
== END 2020-08-16 12:05 | disposition home or self-care (01) | DRG 540 ==
LOC: JD.OBCHECK 14:40 → JD.OB 14:41 → JD.OBCHECK 17:00 → OBSVTOIN 08-14 12:04 → JD.OB 08-14 12:05
PROVIDERS: ADMIT Obstetrics & Gynecology; ATTEND Obstetrics & Gynecology
PROC: 10D00Z1 Extraction of Products of Conception, Low, Open Approach (ICD-10-PCS; principal; 2020-08-14)
PROC: 10H07YZ Insertion of Other Device into Products of Conception, Via Natural or Artificial Opening (ICD-10-PCS; 2020-08-14)
DX: O48.0 Post-term pregnancy (principal); O42.02 Full-term premature rupture of membranes, onset of labor within 24 hours of rupture; O34.211 Maternal care for low transverse scar from previous cesarean delivery; Z3A.40 40 weeks gestation of pregnancy; O41.1290 Chorioamnionitis, unspecified trimester, not applicable or unspecified; E66.9 Obesity, unspecified; Z90.89 Acquired absence of other organs; Z79.899 Other long term (current) drug therapy; Z88.1 Allergy status to other antibiotic agents; O99.214 Obesity complicating childbirth; Z20.828 Contact with and (suspected) exposure to other viral communicable diseases
CPT/HCPCS: 01967; 01968; 36415; 51702; 59025; 84112; 85025; 85027; 86592; 86850; 86900; 86901; 94762; A9270-GY; J0290; J1580; J1885; J2175; J2274; J2370; J2405; J2590; J2765; J3010; J3490; J7050; J7120; J7121; U0002

== ENCOUNTER 2020-09-16 14:50 | Emergency (ER) | payer BC ==
--- NOTE | 2020-09-16 15:27 | EDM.PDOC ---
ED HPI GENERAL MEDICAL PROBLEM - General Chief Complaint: Chest Pain Stated Complaint: [facility] Time Seen by Provider: 09/16/20 15:00 Source of Information: Reports: Patient, RN Notes Reviewed History Limitations: Reports: No Limitations - History of Present Illness INITIAL COMMENTS - FREE TEXT/NARRATIVE: Patient is a 25-year-old female who presents to the ED via [facility] ambulance service for the evaluation of her left-sided chest pain. Patient notes that she had sudden onset chest pain, nausea and dizziness at around 2 PM today. She states it has been constant since it has been present. She was given 4 mg Zofran in the ambulance, and states that the nausea is much better. She notes a remote history of a 4 weeks ago. She characterizes the chest pain and shoulder discomfort as a squeeze, she states that it seems to be aggravated when she raised her arm over her head, nothing seems to really make it better. She is not complaining of any fevers or chills, nausea/vomiting/diarrhea, cough or shortness of breath. Patient notes that the went well, was performed by Dr. Flores. Chest Pain Score (Numeric/FACES): 2 - Related Data Allergies Allergy/AdvReac Type Severity Reaction Status Date / Time Cephalosporins Allergy Rash Verified 09/16/20 15:05 Home Meds: Home Meds Pnv No.95/Ferrous Fum/Folic AC [ Tablet] 1 each PO DAILY 08/11/20 [History] Acetaminophen/oxyCODONE [Percocet 325-5 MG] 1 - 2 tab PO Q4H PRN #25 tablet 08/15/20 [Rx] Docusate Sodium [Colace] 100 mg PO Q12H PRN cap 08/15/20 [Rx] Ibuprofen [Motrin] 600 mg PO Q6H PRN tablet 08/15/20 [Rx] Past Medical History Cardiovascular History: Reports: None Respiratory History: Reports: None Gastrointestinal History: Reports: GERD PEDIATRIC 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 ED EXAM, GENERAL - Physical Exam Exam: See Below Exam Limited By: No Limitations General Appearance: Alert, WD/WN, No Apparent Distress Respiratory/Chest: No Respiratory Distress, Lungs Clear, Normal Breath Sounds, No Accessory Muscle Use, Other ( left chest tender around 3-4th rib, states this is some of the same tenderness she was experiencing.) Cardiovascular: Normal Peripheral Pulses, Regular Rate, Rhythm, No Edema, No Murmur GI/Abdominal: Normal Bowel Sounds, Soft, Non-Tender, No Distention, No Mass Extremities: Normal Inspection, Normal Capillary Refill Neurological: Alert, Oriented, Normal Cognition, No Motor/Sensory Deficits Psychiatric: Normal Affect, Normal Mood Skin Exam: Warm, Dry, Intact, Normal Color, No Rash #1 Interpretation EKG Date: 09/16/20 Time: 14:55 Rhythm: NSR Rate (Beats/Min): 68 [place]: Normal P-Wave: Present QRS: Normal ST-T: Normal QT: Normal Comparison: NA - No Prior EKG EKG Interpretation Comments: No obvious ischemia or acute ST changes noted, reviewed by myself and Dr. Us. Course - Vital Signs Last Recorded V/S: Last Vital Signs Temp 97.6 F 09/16/20 15:00 Pulse 64 09/16/20 15:28 Resp 16 09/16/20 15:28 BP 123/62 09/16/20 15:28 Pulse Ox 94 L 09/16/20 15:28 - Orders/Labs/Meds Orders: Active Orders 24 hr Category Date Time Status EKG Documentation Completion [RC] STAT Care 09/16/20 15:00 Ordered Labs: Laboratory Tests 09/16/20 09/16/20 Range/Units 15:10 15:10 WBC 8.72 (3.98-10.04) K/mm3 RBC 4.60 (3.98-5.22) M/mm3 Hgb 12.6 D (11.2-15.7) gm/dl Hct 39.6 (34.1-44.9) % MCV 86.1 D (79.4-94.8) fl MCH 27.4 (25.6-32.2) pg MCHC 31.8 L (32.2-35.5) g/dl RDW Std Deviation 39.2 (36.4-46.3) fL Plt Count 253 (182-369) K/mm3 MPV 9.7 (9.4-12.3) fl Neut % (Auto) 71.1 (34.0-71.1) % Lymph % (Auto) 22.7 (19.3-51.7) % White % (Auto) 5.0 (4.7-12.5) % Eos % (Auto) 1.0 (0.7-5.8) Baso % (Auto) 0.1 (0.1-1.2) % Neut # (Auto) 6.19 H (1.56-6.13) K/mm3 Lymph # (Auto) 1.98 (1.18-3.74) K/mm3 White # (Auto) 0.44 H (0.24-0.36) K/mm3 Eos # (Auto) 0.09 (0.04-0.36) K/mm3 Baso # (Auto) 0.01 (0.01-0.08) K/mm3 Sodium 141 (136-145) mEq/L Potassium 3.4 L (3.5-5.1) mEq/L Chloride 105 (98-107) mEq/L Carbon Dioxide 25 (21-32) mEq/L Anion Gap 14.4 (5-15) BUN 18 (7-18) mg/dL Creatinine 0.9 (0.55-1.02) mg/dL Est Cr Clr Drug Dosing 96.39 mL/min Estimated GFR (MDRD) > 60 (>60) mL/min BUN/Creatinine Ratio 20.0 H (14-18) Glucose 126 H (74-106) mg/dL Calcium 8.7 (8.5-10.1) mg/dL Total Bilirubin 1.1 H (0.2-1.0) mg/dL AST 61 H (15-37) U/L ALT 53 (14-59) U/L Alkaline Phosphatase 160 H (46-116) U/L Troponin I < 0.017 (0.00-0.056) ng/mL Total Protein 6.8 (6.4-8.2) g/dl Albumin 3.3 L (3.4-5.0) g/dl Globulin 3.5 gm/dL Albumin/Globulin Ratio 0.9 L (1-2) - Re-Assessments/Exams Free Text/Narrative Re-Assessment/Exam: 09/16/20 15:26 Patient presents to the ED for the evaluation of her chest pain. EKG will be obtained along with basic labs for evaluation. It is likely this is more chest wall discomfort as the pain is reproducible on exam. 09/16/20 16:03 The patient's labs are unremarkable, troponin is undetectably low. EKG has no concerning findings. Patient will be discharged home with general recommendations. Departure - Departure Time of Disposition: 16:03 Disposition: Home, Self-Care 01 Condition: Good Clinical Impression: Chest wall discomfort Instructions: Chest Wall Pain, [id number] Referrals: PCP,None [Primary Care Provider] - Forms: ED Department Discharge Additional Instructions: You were evaluated in the ER today for your chest wall discomfort. Your EKG, lab work done at today's visit demonstrates no focal abnormalities, you are not suffering from any cardiac etiology as the cause of your pain. As this pain is reproducible on exam, and worsens with movement of your arm, it is likely that this is more musculoskeletal or chest wall pain. You may use 600 mg ibuprofen every 6 hours as needed for further pain relief. Do not exceed 3200 mg ibuprofen in a 24-hour time span. Please return to the ER at any time if symptoms change or worsen. Sepsis Event Note (ED) - Evaluation Sepsis Screening Result: No Definite Risk - Focused Exam Vital Signs: Vital Signs Temp Pulse Resp BP Pulse Ox 09/16/20 15:28 64 16 123/62 94 L 09/16/20 15:00 97.6 F 72 16 123/67 99 - My Orders Last 24 Hours: My Active Orders 09/16/20 15:00 EKG Documentation Completion [RC] STAT - Assessment/Plan Last 24 Hours: My Active Orders 09/16/20 15:00 EKG Documentation Completion [RC] STAT
== END 2020-09-16 16:20 | disposition home or self-care (01) ==
LOC: JD.ED 14:50
DX: R07.89 Other chest pain (principal); E66.9 Obesity, unspecified
CPT/HCPCS: 36415; 80053; 84484; 85025; 93005; 99285-25

== ENCOUNTER 2022-08-28 03:32 | Inpatient (IN) | payer OTHER ==
[2022-08-28] MEDS ORDERED: Nalbuphine HCl 10 MG/ 1ML Amp IVPUSH PRN (04:27)
[2022-08-28] MEDS ORDERED: Oxytocin/Lactated Ringers 10 UNIT/1,000 ML BAG IV SCH (04:30)
[2022-08-28] MEDS: Lactated Ringers 1,000 ML IV SCH ×2 (05:17→16:52)
[2022-08-28] MEDS ORDERED: Metoclopramide 10 MG/2 ML SDV IVPUSH ONE (16:50)
[2022-08-28] MEDS ORDERED: Clindamycin Phosphate in D5W 900 MG in Premix Bag 1 BAG IV ONE ×2 (16:50)
[2022-08-28] MEDS ORDERED: Azithromycin 1,000 MG in Sodium Chloride 0.9% 500 ML IV ONE (16:50)
[2022-08-28] MEDS ORDERED: Citric Acid/Sodium Citrate Solution 30 ML Cup PO ONE (16:50)
[2022-08-28] MEDS ORDERED: Ketorolac 30 MG/ML SDV ONE (17:06)
[2022-08-28] MEDS ORDERED: ceFAZolin 2 GM Vial ONE (17:06)
[2022-08-28] MEDS ORDERED: Oxytocin 10 Units/1 ML SDV ONE (17:06)
[2022-08-28] MEDS ORDERED: Lactated Ringers 2,000 ML ONE (17:06)
[2022-08-28] MEDS ORDERED: Ondansetron 4 MG/2 ML SDV ONE (17:06)
[2022-08-28] MEDS ORDERED: Morphine PF 10 MG/10 ML SDV ONE (17:10)
[2022-08-28] MEDS ORDERED: Azithromycin 500 MG in Sodium Chloride 0.9% 250 ML IV ONE (17:27)
[2022-08-28] MEDS ORDERED: Methylergonovine 0.2 MG/1 ML Amp ONE (18:03)
[2022-08-28] MEDS ORDERED: Ondansetron 4 MG/2 ML SDV IVPUSH PRN (18:38)
[2022-08-28] MEDS ORDERED: fentaNYL 100 MCG/2 ML SDV IVPUSH PRN (18:38)
[2022-08-28] MEDS ORDERED: HYDROmorphone 0.5 MG/0.5 ML Syringe IVPUSH PRN (18:38)
[2022-08-28] MEDS ORDERED: Ondansetron 4 MG/2 ML SDV IV PRN (19:50)
[2022-08-28] MEDS ORDERED: Dextrose 5%-Lactated Ringers 1,000 ML IV SCH (19:50)
[2022-08-28] MEDS ORDERED: ePHEDrine 50 MG/ML SDV IVPUSH PRN (19:50)
[2022-08-28] MEDS ORDERED: Acetaminophen/oxyCODONE 325-5 MG Tab PO PRN ×2 (19:50)
[2022-08-28] MEDS ORDERED: Naloxone 0.4 MG/ML SDV IVPUSH PRN (19:50)
[2022-08-28] MEDS ORDERED: diphenhydrAMINE 50 MG/ML SDV IVPUSH PRN (19:50)
[2022-08-29] MEDS ORDERED: Ketorolac 30 MG/ML SDV IVPUSH SCH (00:30)
[2022-08-29] MEDS ORDERED: Ibuprofen 600 MG Tab PO PRN (18:30)
[2022-08-30] MEDS ORDERED: Ibuprofen 600 MG Tab ONE (09:05)
[2022-08-30] MEDS ORDERED: Acetaminophen/oxyCODONE 325-5 MG Tab ONE (12:42)
== END 2022-08-31 10:15 | disposition still patient (30) | DRG 788 ==
LOC: JD.OBCHECK 03:32 → JD.OB 03:37 → JD.OBCHECK 03:43 → JD.OB 03:44 → OBSVTOIN 17:55 → JD.OB 17:56 → JD.ZCENSUS 08-29 12:43
PROVIDERS: ADMIT Obstetrics & Gynecology; ATTEND Obstetrics & Gynecology
PROC: 10D00Z1 Extraction of Products of Conception, Low, Open Approach (ICD-10-PCS; principal; 2022-08-28)
DX: O42.02 Full-term premature rupture of membranes, onset of labor within 24 hours of rupture (principal); Z3A.37 37 weeks gestation of pregnancy; Z88.1 Allergy status to other antibiotic agents; O99.62 Diseases of the digestive system complicating childbirth; K21.9 Gastro-esophageal reflux disease without esophagitis; O99.214 Obesity complicating childbirth; Z37.0 Single live birth; Z79.82 Long term (current) use of aspirin
CPT/HCPCS: 01961; 36415; 59025; 84112; 85025; 85027; 86592; 86850; 86900; 86901; A9270-GY; C1726; J0456; J0690; J1170; J1580; J1885; J2210; J2274; J2405; J2590; J2765; J3490; J7050; J7120; J7121

== ENCOUNTER 2023-12-09 08:49 | Inpatient (IN) | payer OTHER ==
[2023-12-09] MEDS ORDERED: Lidocaine 1% 50 ML MDV INJECT PRN (09:36)
[2023-12-09] MEDS ORDERED: Nalbuphine HCl 10 MG/ 1ML Amp IVPUSH PRN (09:36)
[2023-12-09] MEDS ORDERED: Lactated Ringers 1,000 ML IV SCH (09:45)
[2023-12-09] MEDS ORDERED: Oxytocin/Lactated Ringers 30 UNIT/500 ML BAG IV SCH ×2 (09:45)
[2023-12-09 10:26] LABS: BASOPHILS PERCENT AUTO 0.4 % (0.0-1.0); EOSINOPHILS PERCENT AUTO 0.4 % (0.0-6.0); HEMATOCRIT 38.5 % (37.0-47.0); HEMOGLOBIN 12.7 gm/dl (12.0-16.0); IMMATURE GRAN ABSOLUTE AUTO 0.05 K/mm3 (0.00-0.05); IMMATURE GRAN PERCENT AUTO 0.6 % (0.0-0.4); LYMPHOCYTES ABSOLUTE AUTO 1.7 K/mm3 (1.0-4.8); LYMPHOCYTES PERCENT AUTO 20.1 % (24.0-44.0); MEAN CORPUSCULAR HEMOGLOBIN 29.1 pg (28.0-32.0); MEAN CORPUSCULAR VOLUME 88.1 fl (83.0-99.0); MONOCYTES ABSOLUTE AUTO 0.4 K/mm3 (0.0-0.8); NEUTROPHILS ABSOLUTE AUTO 6.3 K/mm3 (1.8-7.7); NEUTROPHILS PERCENT AUTO 73.5 % (41.0-71.0); PLATELET COUNT,PLT 217 K/mm3 (150-400); RED BLOOD CELL COUNT 4.37 M/mm3 (4.10-5.30); WHITE BLOOD CELL COUNT,WBC 8.56 K/mm3 (3.9-11.3)
[2023-12-09] MEDS ORDERED: diphenhydrAMINE 50 MG/ML SDV IVPUSH PRN (10:32)
[2023-12-09] MEDS ORDERED: ePHEDrine 50 MG/ML SDV IVPUSH PRN (10:32)
[2023-12-09] MEDS ORDERED: Bupivacaine/fentaNYL/NS 100 ML Bag EPIDUR PRN (10:32)
[2023-12-09] MEDS ORDERED: fentaNYL 100 MCG/2 ML SDV EPIDUR PRN (10:32)
[2023-12-09 14:05] LABS: APPEARANCE,URINE SLT CLOUDY (Clear); BILIRUBIN,URINE NEGATIVE (Negative); COLOR,URINE YELLOW (Yellow); GLUCOSE,URINE NEGATIVE (Negative); KETONES,URINE NEGATIVE (Negative); LEUKOCYTE ESTERASE,URINE NEGATIVE (Negative); NITRITE,URINE NEGATIVE (Negative); OCCULT BLOOD,URINE 2+ (Negative); PH,URINE 6.5 (5.0-8.0); PROTEIN,URINE NEGATIVE (Negative); UROBILINOGEN,URINE 0.2 (0.2-1.0)
[2023-12-09 14:20] LABS: BACTERIA,URINE FEW /hpf (FEW); MUCUS,URINE RARE /hpf (FEW); RBC,URINE 30-40 /hpf (0-5); SQUAMOUS EPITHELIAL CELLS,UR 0-5 /hpf (0-5); WBC,URINE 0-5 /hpf (0-5)
[2023-12-10] MEDS ORDERED: Sodium Chloride 0.9% 10 ML Syringe FLUSH PRN (00:59)
[2023-12-10] MEDS ORDERED: Metoclopramide 10 MG/2 ML SDV IVPUSH ONE (00:59)
[2023-12-10] MEDS ORDERED: Citric Acid/Sodium Citrate Solution 30 ML Cup PO ONE (00:59)
[2023-12-10] MEDS ORDERED: Lactated Ringers 1,000 ML IV SCH (01:00)
[2023-12-10] MEDS ORDERED: Azithromycin 500 MG in Sodium Chloride 0.9% 250 ML IV ONE (01:07)
[2023-12-10] MEDS ORDERED: Oxytocin 10 Units/1 ML SDV ONE (01:30)
[2023-12-10] MEDS ORDERED: Lactated Ringers 2,000 ML ONE (01:30)
[2023-12-10] MEDS ORDERED: Ketorolac 30 MG/ML SDV ONE (01:30)
[2023-12-10] MEDS ORDERED: ceFAZolin 2 GM in Sodium Chloride 0.9% 50 ML IV ONE (01:30)
[2023-12-10] MEDS ORDERED: Ondansetron 4 MG/2 ML SDV ONE (01:30)
[2023-12-10] MEDS ORDERED: Morphine PF 10 MG/10 ML SDV ONE (01:30)
[2023-12-10] MEDS ORDERED: Bupivacaine 0.5% 30 ML SDV ONE (01:34)
[2023-12-10] MEDS ORDERED: Clindamycin Phosphate in D5W 900 MG in Premix Bag 1 BAG IV ONE ×2 (01:36)
[2023-12-10] MEDS ORDERED: Gentamicin 500 MG in Sodium Chloride 0.9% 100 ML IV ONE (01:36)
[2023-12-10] MEDS ORDERED: Phenylephrine 1% 10 MG/ML SDV ONE (02:06)
[2023-12-10] MEDS ORDERED: Ondansetron 4 MG/2 ML SDV IVPUSH PRN (02:18)
[2023-12-10] MEDS ORDERED: diphenhydrAMINE 50 MG/ML SDV IVPUSH PRN ×2 (02:18→04:35)
[2023-12-10] MEDS ORDERED: fentaNYL 100 MCG/2 ML SDV IVPUSH PRN (02:18)
[2023-12-10] MEDS ORDERED: Meperidine 50 MG/ML Vial IVPUSH PRN (02:18)
[2023-12-10] MEDS ORDERED: Dexamethasone 4 MG/ML SDV ONE (02:30)
[2023-12-10] MEDS ORDERED: Acetaminophen 325 MG Tab PO PRN (04:35)
[2023-12-10] MEDS ORDERED: ePHEDrine 50 MG/ML SDV IVPUSH PRN (04:35)
[2023-12-10] MEDS ORDERED: Dextrose 5%-Lactated Ringers 1,000 ML IV SCH (04:35)
[2023-12-10] MEDS ORDERED: Acetaminophen/oxyCODONE 325-5 MG Tab PO PRN (04:35)
[2023-12-10] MEDS ORDERED: Naloxone 0.4 MG/ML SDV IVPUSH PRN (04:35)
[2023-12-10 05:24] LABS: BASOPHILS PERCENT AUTO 0.1 % (0.0-1.0); HEMATOCRIT 36.2 % (37.0-47.0); HEMOGLOBIN 12.1 gm/dl (12.0-16.0); IMMATURE GRAN ABSOLUTE AUTO 0.08 K/mm3 (0.00-0.05); IMMATURE GRAN PERCENT AUTO 0.5 % (0.0-0.4); LYMPHOCYTES ABSOLUTE AUTO 1.2 K/mm3 (1.0-4.8); LYMPHOCYTES PERCENT AUTO 8.1 % (24.0-44.0); MEAN CORPUSCULAR HEMOGLOBIN 29.2 pg (28.0-32.0); MEAN CORPUSCULAR HGB CONC 33.4 g/dl (32.0-36.0); MEAN CORPUSCULAR VOLUME 87.2 fl (83.0-99.0); MEAN PLATELET VOLUME 9.2 fl (9.4-12.3); MONOCYTES ABSOLUTE AUTO 0.3 K/mm3 (0.0-0.8); MONOCYTES PERCENT AUTO 1.9 % (0.0-8.0); NEUTROPHILS ABSOLUTE AUTO 13.1 K/mm3 (1.8-7.7); NEUTROPHILS PERCENT AUTO 89.4 % (41.0-71.0); PLATELET COUNT,PLT 217 K/mm3 (150-400); RED BLOOD CELL COUNT 4.15 M/mm3 (4.10-5.30); WHITE BLOOD CELL COUNT,WBC 14.63 K/mm3 (3.9-11.3)
[2023-12-10] MEDS: Acetaminophen/oxyCODONE 325-5 MG Tab PO PRN ×3 (06:18→19:54)
[2023-12-10] MEDS: Ketorolac 30 MG/ML SDV IVPUSH SCH ×2 (10:02→16:22)
[2023-12-11] MEDS: Acetaminophen/oxyCODONE 325-5 MG Tab PO PRN ×5 (00:09→19:39)
[2023-12-11] MEDS: Ibuprofen 600 MG Tab PO PRN ×3 (00:09→18:56)
[2023-12-11 05:44] LABS: BASOPHILS PERCENT AUTO 0.4 % (0.0-1.0); EOSINOPHILS ABSOLUTE AUTO 0.1 K/mm3 (0.0-0.4); EOSINOPHILS PERCENT AUTO 0.7 % (0.0-6.0); HEMATOCRIT 32.2 % (37.0-47.0); HEMOGLOBIN 10.8 gm/dl (12.0-16.0); IMMATURE GRAN ABSOLUTE AUTO 0.06 K/mm3 (0.00-0.05); IMMATURE GRAN PERCENT AUTO 0.6 % (0.0-0.4); LYMPHOCYTES ABSOLUTE AUTO 2.7 K/mm3 (1.0-4.8); LYMPHOCYTES PERCENT AUTO 27.1 % (24.0-44.0); MEAN CORPUSCULAR HGB CONC 33.5 g/dl (32.0-36.0); MEAN CORPUSCULAR VOLUME 89.4 fl (83.0-99.0); MEAN PLATELET VOLUME 9.3 fl (9.4-12.3); MONOCYTES ABSOLUTE AUTO 0.5 K/mm3 (0.0-0.8); MONOCYTES PERCENT AUTO 4.9 % (0.0-8.0); NEUTROPHILS ABSOLUTE AUTO 6.7 K/mm3 (1.8-7.7); NEUTROPHILS PERCENT AUTO 66.3 % (41.0-71.0); PLATELET COUNT,PLT 206 K/mm3 (150-400); WHITE BLOOD CELL COUNT,WBC 10.07 K/mm3 (3.9-11.3)
[2023-12-11] MEDS: Docusate Sodium 100 MG Cap PO PRN (20:03)
[2023-12-12] MEDS: Acetaminophen/oxyCODONE 325-5 MG Tab PO PRN ×2 (03:10→09:27)
[2023-12-12] MEDS: Docusate Sodium 100 MG Cap PO PRN (09:27)
[2023-12-12] MEDS: Ibuprofen 600 MG Tab PO PRN (09:28)
== END 2023-12-12 10:15 | disposition home or self-care (01) | DRG 788 ==
LOC: JD.OBCHECK 08:49 → JD.OB 08:52 → JD.OBCHECK 09:41 → OBSVTOIN 12-10 02:23 → JD.OB 12-10 02:24
PROVIDERS: ADMIT Family Medicine; ATTEND Family Medicine
PROC: 10H07YZ Insertion of Other Device into Products of Conception, Via Natural or Artificial Opening (ICD-10-PCS; 2023-12-10)
PROC: 3E033VJ Introduction of Other Hormone into Peripheral Vein, Percutaneous Approach (ICD-10-PCS; 2023-12-10)
PROC: 0T9B70Z Drainage of Bladder with Drainage Device, Via Natural or Artificial Opening (ICD-10-PCS; 2023-12-10)
PROC: 10D00Z1 Extraction of Products of Conception, Low, Open Approach (ICD-10-PCS; principal; 2023-12-10 01:46)
DX: O34.211 Maternal care for low transverse scar from previous cesarean delivery (principal); O42.02 Full-term premature rupture of membranes, onset of labor within 24 hours of rupture; O99.214 Obesity complicating childbirth; O62.2 Other uterine inertia; Z3A.39 39 weeks gestation of pregnancy; Z37.0 Single live birth
CPT/HCPCS: 01961; 36415; 59025; 81001; 84112; 85025; 86592; 86850; 86900; 86901; 99100; A9270-GY; J0456; J0665; J0736; J1100; J1580; J1885; J2274; J2371; J2405; J2590; J2765; J3490; J7050; J7120; J7121; J7999

== ENCOUNTER 2025-10-22 13:56 | Observation (INO) | payer OTHER ==
[2025-10-22 14:51] VITALS: BP 131/63; PULSE 81
== END 2025-10-22 15:06 | disposition home or self-care (01) ==
LOC: JD.OBCHECK 13:56 → JD.OB 13:57 → JD.OBCHECK 14:32
PROVIDERS: ADMIT Obstetrics & Gynecology; ATTEND Obstetrics & Gynecology
DX: O42.913 Preterm premature rupture of membranes, unspecified as to length of time between rupture and onset of labor, third trimester (principal); Z3A.34 34 weeks gestation of pregnancy
CPT/HCPCS: 59025; 84112